=== PATIENT | male | born 2005 | race Hispanic/Latino ===

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

== ENCOUNTER 2025-07-10 00:26 | Emergency (ER) | payer BC, MEDICAID ==
[~2025-07-10] VITALS: Ht 170.2 cm; Wt 81.2 kg
[~2025-07-10 00:26] MED LIST changes: -0.9%NACL 1000ML 1,000 ML IV ONE; -DiphenhydrAMINE HCL 50 MG/ML VIAL IV ONE; -FAMOTIDINE 20MG VIAL IV ONE; -METOCLOPRAMIDE 10 MG/2 ML VIAL IVP ONE; +ONDA-243 PO; -ONDA4TAB10 PO; -ONDANSETRON 4MG INJ IVP ONE
--- NOTE | 2025-07-10 01:19 | ERN ---
General Chief Complaint: Thumb Injury Pain Stated Complaint: C/O PAIN TO RIGHT THUMB Time Seen by MD: 00:30 Time Seen by Midlevel: 00:30 Source: patient History of Present Illness Initial Comments 20-year-old male with no significant past medical history presents to the emergency department for evaluation of pain and swelling to his right thumb. Patient states he had a brick fall on him while he was outside working. Denies any other injury. Allergies: Coded Allergies: No Known Allergies (Unverified Allergy, Unknown, 04/09/22) Home Meds Active Scripts Famotidine (Pepcid) 20 Mg Tablet, 20 MG PO BID, #30 TAB Prov:FITTING,JESSICA ECD 04/09/22 Ondansetron (Ondansetron Odt) 4 Mg Tab.rapdis, 4 MG PO TID, #15 TAB Prov:FITTING,GRACIAMAI ECD 04/09/22 Past Medical History Past Medical History: No Pertinent History Past Surgical History: None ROS Dictation CONSTITUTIONAL: Negative except for HPI HEAD/FACE: Negative except for HPI EENT: Negative except for HPI RESPIRATORY: Negative except for HPI GASTROINTESTINAL/ABDOMINAL: Negative except for HPI GENITOURINARY: Negative except for HPI MUSCULOSKELETAL: Negative except for HPI INTEGUMENTARY: Negative except for HPI NEUROLOGICAL/PSYCH: Negative except for HPI HEMATOLOGIC/LYMPHATIC: Negative except for HPI All Systems Negative, Except as noted above. 13 point review of systems assessed and all negative except for above. Physical Exam Physical Exam Dictation PHYSICAL EXAM: GENERAL: alert,, awake oriented x 3 HEENT: EOMI, Sclera non icteric, moist mucosa NECK: Supple, no JVD, trachea midline LUNGS: Clear breath sounds bilaterally. No wheezes HEART: Regular rate and rhythm. Normal S1 and S2, without murmurs ABD: Abdomen soft, nontender. Bowel sounds present EXT: Tenderness and swelling to the right 1st digit NEURO: Alert and oriented to person, follows commands MDM MDM: Differential diagnosis: Fracture, contusion, dislocation There are no social concerns with this patient. Prescription drug management Prescriptions will include: None Medical management and examination interpretation discussions were had by me with other qualified healthcare professionals as indicated for the patient's care. ED Course Orders Procedure Category Date Status Time Finger(S) 2+Vws Rt RAD 07/10/25 Resulted 00:32 Vital Signs Date Time Temp Pulse Resp B/P (MAP) Pulse Ox O2 Delivery O2 Flow Rate FiO2 07/10/25 00:27 97.5 69 20 132/82 99 Room Air [facility] [address] [place] [address] IMAGING REPORT Signed PATIENT: RICHAR GÓMEZ MR#: [id number] : 2005 SEX: M AGE: 20 LOCATION: [facility] ORDER STATUS: REG ER REPORT#: [id number] SERVICE REASON: r/o fx ORDERING PHYSICIAN: TAMIR MEDRANO PAC PROCEDURE: FINGER RT - FINGER(S) 2+VWS RT EXAM: CR Right Hand Thumb, 2 views. CLINICAL HISTORY: Rule out fracture. COMPARISON: None provided. FINDINGS: No acute fracture or aggressive appearing osseous lesion. The joint spaces are within normal limits. No arthritis. No joint erosion. Mild diffuse soft tissue swelling is evident. IMPRESSION: No acute fracture. Mild diffuse soft tissue swelling. /[place] DICTATED BY: JASPER HIDALGO Jr., MD DATE: 07/10/25316 ELECTRONICALLY SIGNED BY: JASPER HIDALGO Jr., MD DATE: 07/10/25316 DX & DISP Disposition: Discharge Departure Impression: Primary Impression: Thumb contusion Condition: Stable Additional Instructions: Your x-ray does not show any evidence of an acute fracture or dislocation. You may take Tylenol and Motrin as needed for pain. Referrals: JAMAR HERNANDEZ MD (PCP) Time of Disposition: 02:23 I have reviewed the case, and I agree with, Diagnosis and Plan I performed the substantive portion of the visit. I have reviewed and personally made and approve the management plan that is documented in the note by myself or the BELEN. I acknowledge for responsibility for the patient's management plan. TAMIR MEDRANO PAC Jul 10, 2025 01:19
--- NOTE | 2025-07-10 02:18 | HMCIMG ---
EXAM: CR Right Hand Thumb, 2 views. CLINICAL HISTORY: Rule out fracture. COMPARISON: None provided. FINDINGS: No acute fracture or aggressive appearing osseous lesion. The joint spaces are within normal limits. No arthritis. No joint erosion. Mild diffuse soft tissue swelling is evident. IMPRESSION: No acute fracture. Mild diffuse soft tissue swelling. /[employer]
[2025-07-10 03:00] VITALS: BP 124/78; PULSE 82; RESP 16; TEMP 98.1; O2SAT 99
== END 2025-07-10 03:03 | disposition home or self-care (01) ==
LOC: EDH 00:26
DX: S60.011A Contusion of right thumb without damage to nail, initial encounter (principal); W22.8XXA Striking against or struck by other objects, initial encounter; Y93.89 Activity, other specified; Y92.89 Other specified places as the place of occurrence of the external cause; Y99.8 Other external cause status
CPT/HCPCS: 29130; 73140; 99283